=== PATIENT | female | born 1960 | race Caucasian/White ===

== ENCOUNTER 2019-05-12 14:00 | Emergency (ER) | payer SELFPAY ==
--- NOTE | 2019-05-12 14:07 | PDOC ---
Rapid Medical Evaluation Time Seen by Provider: 05/12/19 14:06 Medical Evaluation: Allergies Allergy/AdvReac Type Severity Reaction Status Date / Time No Known Allergies Allergy Verified 08/25/13 04:08 05/12/19 14:06 I have performed a brief in-person evaluation of this patient. The patient presents with a chief complaint of: palpitations Pertinent physical exam findings:stable and in NAD, non-focal I have ordered the following:labs, ekg The patient will proceed to the ED for further evaluation.
[2019-05-12 14:08] VITALS: BP 151/72; PULSE 76; TEMP 98; BMI 34.0
--- NOTE | 2019-05-12 14:53 | PDOC ---
History of Present Illness - General Chief Complaint: Palpitations Stated Complaint: CHEST PAIN Time Seen by Provider: 05/12/19 14:06 History Source: Patient Exam Limitations: No Limitations - History of Present Illness Initial Comments: 05/12/19 14:47 58 yo F smoker (1/2 PPD) w/ asthma, anemia, HLD comes in c/o palpitations last night at 6pm yesterday, she also felt it this morning, associated with midback pain which resolved. No palpitations now. She has been having them intermittently for 2 weeks. Admits to drinking a lot of coffee, 4 cups of Bustelo yesterday. No chest pain, no SOB, no back pain now. NO calf pain, no h/ o PE/DVT, no recent surgery, (+)recent travel from to and from [place] on . No estrogen use. No prior h/o similar symptoms. (+)family h/o PR, DM, father's side Also c/o cold symptoms for the past 2 days w/ runny nose, cough with chest congestion, (+)granddaughter is sick with a cold. She used he inhaler once and it helped. 05/12/19 14:56 Past History - Past Medical History Allergies/Adverse Reactions: Allergies Allergy/AdvReac Type Severity Reaction Status Date / Time No Known Allergies Allergy Verified 05/12/19 14:09 Home Medications: Ambulatory Orders Albuterol 0.083% Nebulizer Dionne [Ventolin 0.083% Nebulizer Soln -] 1 neb NEB QIDR #0 vial 12/21/11 Albuterol Sulfate Inhaler - [Ventolin HFA Inhaler -] 2 inh QID #0 inh Anemia: Yes Asthma: Yes Cancer: No Cardiac Disorders: Yes (chest pain/sob) CVA: No COPD: No CHF: No Dementia: No Diabetes: No GI Disorders: No Disorders: No HTN: Yes Hypercholesterolemia: No Liver Disease: No Seizures: No Thyroid Disease: No - Immunization History Td Vaccination: Yes TDAP Vaccination: Yes Immunization Up to Date: Yes - Psycho Social/Smoking Cessation Hx Smoking Status: No Smoking History: Never smoked Years of Tobacco Use: 0 Have you smoked in the past 12 months: No Number of Cigarettes Smoked Daily: 0 If you are a former smoker, when did you quit?: over a year ago Cigars Per Day: 0 Hx Alcohol Use: No Drug/Substance Use Hx: No Substance Use Type: None Hx Substance Use Treatment: No Review of Systems - Review of Systems Able to Perform ROS?: Yes Constitutional: No: Chills, Fever, Malaise, Night Sweats HEENTM: No: Eye Pain, Recent change in vision, Throat Pain Respiratory: No: Cough, Shortness of Breath Cardiac (ROS): Yes: Palpitations. No: Chest Pain, Chest Tightness ABD/GI: No: Diarrhea, Nausea, Vomiting, Abdominal cramping : No: Dysuria, Hematuria Musculoskeletal: No: Back Pain Integumentary: No: Rash Neurological: No: Headache, Numbness, Dizziness Psychiatric: No: Change in Appetite Endocrine: No: Unexplained Weight Loss *Physical Exam - Vital Signs Last Vital Signs Temp Pulse Resp BP Pulse Ox 98 F 76 18 151/72 98 05/12/19 14:02 05/12/19 14:02 05/12/19 14:02 05/12/19 14:02 05/12/19 14:02 - Physical Exam General Appearance: Yes: Nourished. No: Apparent Distress HEENT: positive: TRISTAN, Normal ENT Inspection, Normal Voice. negative: Pale Conjunctivae, Scleral Icterus (R), Scleral Icterus (L) Neck: positive: Supple. negative: Decreased range of motion, Tender midline Respiratory/Chest: positive: Lungs Clear, Normal Breath Sounds, Wheezing ( expiratory on L full iyer). negative: Respiratory Distress, Accessory Muscle Use Cardiovascular: positive: Regular Rhythm, Regular Rate Gastrointestinal/Abdominal: positive: Normal Bowel Sounds, Soft. negative: Tender Musculoskeletal: positive: Normal Inspection. negative: CVA Tenderness, Decreased Range of Motion Extremity: positive: Normal Capillary Refill, Normal Inspection, Normal Range of Motion. negative: Tender, Pedal Edema Integumentary: positive: Normal Color, Dry. negative: Jaundice, Rash Neurologic: positive: Fully Oriented, Alert, Normal Mood/Affect ED Treatment Course - LABORATORY CBC & Chemistry Diagram: 05/12/19 14:40 05/12/19 14:40 Medical Decision Making - Medical Decision Making 05/12/19 14:53 58 yo F smoker w/ palpitations after drinking 4 cups of coffee. She has been having them intermittently for the past 2 weeks. Also w/ L sided wheezing on exam. Will check an EKG, CXR, labs and reassess Also w/ URI. Will also give a neb and reassess 05/12/19 14:56 05/12/19 15:57 Change of shift, care of patient signed over to [employer] [facility] who will follow up labs , reassess pt and decide on dispo plan Discharge - Discharge Information Problems reviewed: Yes Clinical Impression/Diagnosis: Palpitations - Follow up/Referral Referrals: Dagmar Dior [Primary Care Provider] - - Patient Discharge Instructions - Post Discharge Activity
[2019-05-12 14:59] LABS: BASO % 0.5 % (0-2.0); EOS % 2.6 % (0-4.5); HEMATOCRIT 41.2 % (32.4-45.2); HEMOGLOBIN 13.3 GM/dL (10.7-15.3); LYMPH % 24.6 % (8-40); MCHC 32.2 g/dl (32.0-36.0); MEAN CELL VOLUME 80.8 fl (80-96); MEAN PLT VOLUME 7.7 fl (7.5-11.1); MONO % 7.9 % (3.8-10.2); NEUT % 64.4 % (42.8-82.8); PLATELET COUNT 271 K/MM3 (134-434); RBC 5.09 M/mm3 (3.60-5.2); RDW 15.4 % (11.6-15.6); WHITE BLOOD COUNT 6.6 K/mm3 (4.0-10.0)
[2019-05-12] MEDS ORDERED: ALBUTEROL SO4 2.5/IPRATROPIUM 0.5 INH SOL 3 ML VIAL.NEB. NEB ONE ×2 (15:14→15:24)
[2019-05-12 15:22] LABS: ALBUMIN 3.8 g/dl (3.4-5.0); BILIRUBIN,TOTAL 0.3 mg/dL (0.2-1); CALCIUM 9.8 mg/dL (8.5-10.1); CREATININE 0.5 mg/dL (0.55-1.3); POTASSIUM 4.2 mmol/L (3.5-5.1); TOT PROT 7.2 g/dl (6.4-8.2)
--- NOTE | 2019-05-12 17:06 | PDOC ---
*Physical Exam - Vital Signs Last Vital Signs Temp Pulse Resp BP Pulse Ox 98 F 76 18 151/72 98 05/12/19 14:02 05/12/19 14:02 05/12/19 14:02 05/12/19 14:02 05/12/19 14:02 - Physical Exam General Appearance: Yes: Appropriately Dressed. No: Apparent Distress HEENT: positive: Normal ENT Inspection Neck: positive: Trachea midline Respiratory/Chest: positive: Lungs Clear, Normal Breath Sounds. negative: Respiratory Distress, Accessory Muscle Use Cardiovascular: positive: Regular Rhythm, Regular Rate. negative: Murmur ED Treatment Course - LABORATORY CBC & Chemistry Diagram: 05/12/19 14:40 05/12/19 14:40 - ADDITIONAL ORDERS Additional order review: Laboratory Results 05/12/19 05/12/19 14:40 14:40 Sodium 139 Potassium 4.2 Chloride 107 Carbon Dioxide 28 Anion Gap 4 L BUN 13.0 Creatinine 0.5 L Est GFR (CKD-EPI)AfAm 125.40 Est GFR (CKD-EPI)NonAf 108.19 Random Glucose 107 H Calcium 9.8 Magnesium 2.0 Total Bilirubin 0.3 AST 17 ALT 41 Alkaline Phosphatase 108 Creatine Kinase 44 Troponin I < 0.02 Total Protein 7.2 Albumin 3.8 05/12/19 14:40 RBC 5.09 MCV 80.8 MCHC 32.2 RDW 15.4 D MPV 7.7 Neutrophils % 64.4 D Lymphocytes % 24.6 D Monocytes % 7.9 D Eosinophils % 2.6 D Basophils % 0.5 D - Medications Given in the ED: ED Medications Discontinued Medications Generic Name Dose Route Start Last Admin Trade Name Leena PRN Reason Stop Dose Admin Albuterol/Ipratropium 1 amp 05/12/19 15:14 05/12/19 15:30 Duoneb - NEB 05/12/19 15:15 1 amp ONCE ONE Administration ED Progress Note - Progress Note Progress Note: 05/12/19 17:00 Received center from [facility]. Briefly this is a 58-year-old woman past medical history of asthma, anemia and hyperlipidemia presenting with palpitations starting last at 6:00 continuing throughout the day today after drinking 4 cups of strong coffee yesterday. CBC is unremarkable. Chemistries are unremarkable Initial troponin is less than 0.02. Patient is pending chest x-ray for disposition. Medical Decision Making - Medical Decision Making 05/12/19 17:19 Chest x-ray as read by Dr. Vargas: Bilateral upper lobe changes. Further evaluation is suggested. Lungs are currently clear and patient is improved per her own report. Patient is speaking in long sentences and is not in any respiratory distress. I will discharge the patient home to follow-up with her primary doctor for continued evaluation. Patient has been instructed to avoid drinking large amounts of strong coffee. 05/12/19 17:30 EKG sinus rhythm with rate of 70. Normal intervals noted. QTc 419 ms. Normal axis. No ischemic changes present. I discussed the physical exam findings, ancillary test results and final diagnoses with the patient. I answered all of the patient's questions. The patient was satisfied with the care received and felt comfortable with the discharge plan and treatment plan. The patient will call their primary care physician within 24 hours to arrange follow-up and will return to the Emergency Department with any new, persistent or worsening symptoms. Discharge - Discharge Information Problems reviewed: Yes Clinical Impression/Diagnosis: Palpitations Condition: Stable Disposition: HOME - Admission No - Follow up/Referral Referrals: Dagmar Dior [Primary Care Provider] - - Patient Discharge Instructions Additional Instructions: As discussed you have mild upper lobe changes in both lungs. It is important that you follow-up with your primary doctor within the next 7 days for continued evaluation. Avoid drinking large amounts of Caf [employer]. Return to the emergency department for any new or worsening symptoms. Thank you very much for choosing us to provide your emergent health care needs. - Post Discharge Activity
--- NOTE | 2019-05-13 13:20 | EKG ---
Test Reason : Blood Pressure : / mmHG Vent. Rate : 070 BPM Atrial Rate : 070 BPM P-R Int : 138 ms QRS Dur : 086 ms QT Int : 388 ms P-R-T Axes : 047 070 068 degrees QTc Int : 419 ms NORMAL SINUS RHYTHM NORMAL ECG WHEN COMPARED WITH ECG OF 05-JUN-2017 12:12, NO SIGNIFICANT CHANGE WAS FOUND Confirmed by LUX SPAIN MD ([id number]) on 05/13/2019 1:20:34 PM Referred By: Confirmed By:LUX SPAIN MD
== END 2019-05-12 17:15 | disposition home or self-care (01) ==
LOC: JER 14:00
PROC: 3E0F7GC Introduction of Other Therapeutic Substance into Respiratory Tract, Via Natural or Artificial Opening (ICD-10-PCS; principal; 2019-05-12)
DX: R00.2 Palpitations (principal); J06.9 Acute upper respiratory infection, unspecified; J45.909 Unspecified asthma, uncomplicated; F17.210 Nicotine dependence, cigarettes, uncomplicated; D64.9 Anemia, unspecified; E78.5 Hyperlipidemia, unspecified
CPT/HCPCS: 36415; 71046-TC-FY; 80053; 82550; 83735; 84484; 85025; 93005; 93010; 99282-25

== ENCOUNTER 2024-10-29 14:06 | Emergency (ER) | payer OTHER ==
[2024-10-29 14:13] VITALS: TEMP 98.3; BMI 32.5
[2024-10-29] MEDS: ALBUTEROL SO4 2.5/IPRATROPIUM 0.5 INH SOL 3 ML VIAL.NEB. NEB SCH (14:46)
[2024-10-29] MEDS ORDERED: ACETAMINOPHEN 325 MG TABLET (FP) ONE (15:10)
[2024-10-29] MEDS ORDERED: methylPREDNISolone NA SUCC 125 MG/2 ML VIAL ONE (15:11)
[2024-10-29] MEDS: ACETAMINOPHEN 500 MG TABLET (FP) PO ONE (15:15)
[2024-10-29] MEDS: methylPREDNISolone NA SUCC 125 MG/2 ML VIAL IVPUSH ONE (15:25)
[2024-10-29 15:38] LABS: ABSOLUTE IMMATURE GRANULOCYTES 0.03 x10^3/uL (0.0-0.031); BASOPHILS # 0.03 x10^3/uL (0.01-0.08); EOSINOPHIL % 1.9 % (0.7-5.8); EOSINOPHILS # 0.15 x10^3/uL (0.04-0.36); HEMATOCRIT 40.8 % (34.1-44.9); HEMOGLOBIN 12.5 g/dL (11.2-15.7); MCHC 30.6 g/dl (32.2-35.5); MEAN CELL VOLUME 83.6 fl (79.4-94.8); MEAN PLT VOLUME 9.7 fl (9.4-12.3); MONOCYTE # 0.58 x10^3/uL (0.24-0.86); MONOCYTE % 7.5 % (4.7-12.5); PLATELET COUNT 245 x10^3/uL (182-369); RDW 15.9 % (12.4-16.4)
[2024-10-29 15:50] LABS: VENOUS BASE EXCESS 0.7 mmol/L (-2-2); VENOUS PCO2 47.4 mmHg (38-52); VENOUS PH 7.367 (7.310-7.410)
[2024-10-29 15:55] LABS: CALCIUM 9.7 mg/dL (8.5-10.1)
[2024-10-29 15:56] LABS: ALBUMIN 3.5 g/dl (3.4-5.0); BLOOD UREA NITROGEN 13.2 mg/dL (7-18)
[2024-10-29 15:57] LABS: POTASSIUM 3.6 mmol/L (3.5-5.1)
[2024-10-29 15:59] LABS: CREATININE 0.5 mg/dL (0.55-1.3)
[2024-10-29 16:01] LABS: BILIRUBIN,TOTAL 0.3 mg/dL (0.2-1); TOT PROT 6.9 g/dl (6.4-8.2)
[2024-10-29 16:04] LABS: N-TERMINAL BNP 145.3 pg/ml (5-125)
[2024-10-29] MEDS ORDERED: MAGNESIUM SULFATE IN WATER 2 GM/50 ML IVPB IVPB ONE (16:23)
[2024-10-29] MEDS: MAGNESIUM SULFATE IN WATER 2 GM/50 ML IVPB IVPB ONE (16:25)
[2024-10-29] MEDS ORDERED: AZITHROMYCIN 500 MG TABLET ONE (19:26)
[2024-10-29] MEDS: AZITHROMYCIN 250 MG TABLET PO ONE (19:29)
[2024-10-29 19:47] VITALS: BP 166/58; PULSE 79; RESP 15
== END 2024-10-29 19:48 | disposition home or self-care (01) ==
LOC: JER 14:06
PROC: 3E033GC Introduction of Other Therapeutic Substance into Peripheral Vein, Percutaneous Approach (ICD-10-PCS; principal; 2024-10-29)
PROC: 3E033GC Introduction of Other Therapeutic Substance into Peripheral Vein, Percutaneous Approach (ICD-10-PCS; 2024-10-29)
PROC: 3E0F7GC Introduction of Other Therapeutic Substance into Respiratory Tract, Via Natural or Artificial Opening (ICD-10-PCS; 2024-10-29)
DX: J44.9 Chronic obstructive pulmonary disease, unspecified (principal); R07.89 Other chest pain; R06.02 Shortness of breath; R05.9 Cough, unspecified; R51.9 Headache, unspecified
CPT/HCPCS: 36415; 71046-TC-FY; 80053; 82803; 83880; 84484; 85025; 93005; 93010; 99285-25